=== PATIENT | male | born 1960 | race African-American/Black ===

== ENCOUNTER 2021-09-01 20:17 | Emergency (ER) | payer MEDICAID ==
[~2021-09-01] VITALS: Ht 177.8 cm; Wt 101.0 kg
[2021-09-02 00:15] VITALS: BP 129/90
== END 2021-09-02 00:19 ==
LOC: ER 20:17
DX: I95.9 Hypotension, unspecified (principal); R45.1 Restlessness and agitation; I10 Essential (primary) hypertension; F79 Unspecified intellectual disabilities
CPT/HCPCS: 99285

== ENCOUNTER 2023-06-09 20:04 | Emergency (ER) | payer MEDICAID, OTHER ==
[~2023-06-09] VITALS: Ht 172.7 cm; Wt 91.0 kg
[2023-06-09 20:05] VITALS: O2SAT 98
[2023-06-09 20:54] LABS: CLARITY URINE CLEAR (CLEAR); COLOR URINE YELLOW (YELLOW); GLUCOSE URINE NEGATIVE (NEGATIVE); KETONES URINE NEGATIVE (NEGATIVE); LEUKOCYTE ESTERASE URINE TRACE (NEGATIVE); NITRITE URINE NEGATIVE (NEGATIVE); OCCULT BLOOD URINE TRACE (NEGATIVE); PROTEIN URINE NEGATIVE (NEGATIVE); SPECIFIC GRAVITY URINE 1.003 (1.005-1.030); UROBILINOGEN URINE 0.2 E.U./dL (0.2-1.0)
[2023-06-09 20:56] LABS: RED BLOOD CELL COUNT 3.92 mill/uL (4.7-6.1)
[2023-06-09 21:06] LABS: HEMATOCRIT. 37.2 % (42.0-52.0); HEMOGLOBIN. 12.5 g/dL (14.0-18.0); MEAN CORPUSCULAR HGB CONC 33.6 g/dL (31.0-37.0); MEAN CORPUSCULAR VOLUME 95.1 fL (80.0-94.0); PLATELET 215 x1000/uL (130-400); RED CELL DISTRIBUTION WIDTH 13.7 % (11.6-14.6); WHITE BLOOD COUNT 4.6 x1000/uL (4.5-11.0)
[2023-06-09 21:07] LABS: DIFFERENTIAL COMMENT 1
[2023-06-09 21:13] LABS: ALANINE AMINOTRANSFERASE 16 IU/L (10-49); ALBUMIN 4.1 g/dL (3.2-4.8); ASPARTATE AMINOTRANSFERASE 26 IU/L (<34); BILIRUBIN TOTAL 0.4 mg/dL (0.1-1.0); CALCIUM 9.6 mg/dL (8.7-10.4); CARBON DIOXIDE 28 mEq/L (21-32); CHLORIDE 100 mEq/L (98-107); CREATININE 1.1 mg/dL (0.6-1.3); GLUCOSE 151 mg/dL (70-105); POTASSIUM 3.9 mEq/L (3.5-5.1); PROTEIN TOTAL 7.2 g/dL (6.0-8.3); SODIUM 134 mEq/L (136-145); UREA NITROGEN BLOOD 14 mg/dL (9-23)
[2023-06-09 21:21] LABS: TROPONIN I HIGH SENSITIVITY < 4 ng/L (3.0-53)
[2023-06-09 21:42] LABS: BACTERIA URINE TRACE; RBC URINE 0-2 /hpf (0-2); SQUAMOUS EPITHELIAL CELL URINE RARE /lpf (RARE/1+); WBC URINE 0-2 /hpf (0-2)
[2023-06-09 22:11] LABS: PLATELET ESTIMATE NORMAL
[2023-06-09] MEDS ORDERED: CEFP200T13 MT (22:46)
[2023-06-10 08:35] VITALS: BP 134/84; PULSE 81; RESP 12; TEMP 98.6
== END 2023-06-10 10:27 | disposition home or self-care (01) ==
LOC: ER 20:04
DX: R53.1 Weakness (principal); N39.0 Urinary tract infection, site not specified; D64.9 Anemia, unspecified; E11.9 Type 2 diabetes mellitus without complications; I10 Essential (primary) hypertension
CPT/HCPCS: 80053; 81003; 83690; 85025; 84484; 36415; 71045; 99284; Z7610